=== PATIENT | male | born 1945 | race African-American/Black ===

== ENCOUNTER 2017-05-19 11:32 | Emergency (ER) | payer MEDICARE, OTHER ==
[~2017-05-19] VITALS: Ht 167.6 cm; Wt 90.0 kg
[~2017-05-19 11:32] MED LIST: ASPIRIN 32325 MG/TAB PO; COZAAR 50MG50 MG/TAB PO; HCTZ 25MG TAB25 MG PO; IMDUR 30MG30 MG/TAB PO; LEVAQUIN 750MG750 M1 PO; LIPITOR 40MG TA40 MG PO; NITROSTAT0.4 MG/TAB SL; OMEGA-31 SGL PO; PERI-COLACE 501 TAB PO; PLAVIX 75MG TAB75 MG PO; PLETAL 100MG T100 MG PO; PRILOSEC 20MG20 MG PO; ROXICODONE 55 MG/TAB PO; TENORMIN 2525 MG/TAB PO; ULTRAM 50MG TAB50 MG PO; ZETIA 10MG TAB10 MG PO
[2017-05-19 11:36] VITALS: TEMP 98.6
[2017-05-19 13:05] LABS: BASO % 0.6 % (0.0-2.0); EOS # 0.1 (0.0-0.7); EOS % 3.9 % (0-4.0); GRAN # 1.7 (1.4-6.5); GRAN % 45.6 % (42.2-75.2); HEMATOCRIT 42.6 % (42.0-52.0); HEMOGLOBIN 14.8 g/dl (13.5-18.0); LYMPH # 1.3 (1.2-3.4); LYMPH % 36.4 % (20.0-51.0); MEAN CELL VOLUME 93 fl (80.0-100.0); MEAN CORPUSCULAR HEMOGLOBIN 32 pg (27.0-31.0); MEAN CORPUSCULAR HGB CONC 35 g/dl (33.0-37.0); MEAN PLATELET VOLUME 9.1 fl (7.4-10.4); MONO # 0.5 (0.1-0.6); MONO % 13.5 % (1.7-9.3); PLATELET COUNT 171 K/mm3 (130-400); REDCELL DISTRIBUTION WIDTH-CV 12.7 % (11.5-14.5)
[2017-05-19 13:14] LABS: ALANINE AMINOTRANSFERASE 44 U/L (21-72); ALBUMIN 4.4 gm/dL (3.5-5.0); ALKALINE PHOSPHATASE 65 U/L (50-136); ANION GAP 12 mmol/L (7-16); AST,SGOT 47 U/L (15-37); BLOOD UREA NITROGEN 14 mg/dL (9-20); CALCIUM 9.3 mg/dL (8.4-10.2); CARBON DIOXIDE 25 mmol/L (22-30); CHLORIDE 100 mmol/L (98-107); CREATININE, serum 1.16 mg/dL (0.66-1.25); GLUCOSE 87 mg/dL (74-106); LIPASE 199 U/L (23-300); POTASSIUM 3.9 mmol/L (3.4-5.0); SODIUM 137 mmol/L (137-145); TOTAL PROTEIN 7.5 gm/dL (6.4-8.2)
[2017-05-19 13:17] LABS: C-REACTIVE PROTEIN < 0.5 mg/dL (0.0-0.9)
[2017-05-19 13:23] LABS: TROPONIN-I 0.013 ng/mL (0.000-0.034)
[2017-05-19 14:04] VITALS: BP 125/85; PULSE 64
== END 2017-05-19 14:05 | disposition home or self-care (01) ==
LOC: COL.ER 11:32
PROVIDERS: Emergency Medicine
DX: R07.89 Other chest pain (principal); I10 Essential (primary) hypertension; Z95.5 Presence of coronary angioplasty implant and graft; Z79.82 Long term (current) use of aspirin; Z79.02 Long term (current) use of antithrombotics/antiplatelets

== ENCOUNTER → 2017-11-26 | Outpatient (CLI) | payer MEDICARE, OTHER | LOC: COL.RAD 12:23 | DX: M99.73 Connective tissue and disc stenosis of intervertebral foramina of lumbar region (principal); M51.36 Other intervertebral disc degeneration, lumbar region; M48.061 Spinal stenosis, lumbar region without neurogenic claudication ==

== ENCOUNTER 2018-11-30 19:27 | Emergency (ER) | payer MEDICARE, OTHER ==
[~2018-11-30] VITALS: Ht 167.6 cm; Wt 82.7 kg
[2018-11-30 19:31] VITALS: BP 114/57; TEMP 98.1
[2018-11-30 20:22] VITALS: PULSE 82
== END 2018-11-30 20:23 | disposition home or self-care (01) ==
LOC: COL.ER 19:27
DX: S61.213A Laceration without foreign body of left middle finger without damage to nail, initial encounter (principal); I10 Essential (primary) hypertension; Z23 Encounter for immunization; Z79.82 Long term (current) use of aspirin; Z79.02 Long term (current) use of antithrombotics/antiplatelets; W26.8XXA Contact with other sharp object(s), not elsewhere classified, initial encounter; Y92.009 Unspecified place in unspecified non-institutional (private) residence as the place of occurrence of the external cause

== ENCOUNTER 2019-07-03 15:48 | Emergency (ER) | payer MEDICARE, OTHER ==
[~2019-07-03] VITALS: Ht 160 cm; Wt 79.5 kg
[2019-07-03 15:56] VITALS: TEMP 98.5
[2019-07-03 16:16] LABS: BASO % 0.3 % (0.0-2.0); EOS # 0.1 (0.0-0.7); EOS % 1.6 % (0-4.0); GRAN # 5.1 (1.4-6.5); GRAN % 70.5 % (42.2-75.2); LYMPH # 1.1 (1.2-3.4); LYMPH % 15.3 % (20.0-51.0); MEAN CELL VOLUME 95 fl (80.0-100.0); MEAN CORPUSCULAR HEMOGLOBIN 31 pg (27.0-31.0); MEAN CORPUSCULAR HGB CONC 33 g/dl (33.0-37.0); MEAN PLATELET VOLUME 9.3 fl (7.4-10.4); MONO # 0.9 (0.1-0.6); MONO % 11.9 % (1.7-9.3); PLATELET COUNT 324 K/mm3 (130-400); RED BLOOD COUNT 3.23 M/mm3 (4.20-5.60); REDCELL DISTRIBUTION WIDTH-CV 13.7 % (11.5-14.5)
[2019-07-03 16:20] LABS: HEMATOCRIT 30.6 % (42.0-52.0)
[2019-07-03 16:28] LABS: ALANINE AMINOTRANSFERASE 22 U/L (4-49); ALBUMIN 4.2 gm/dL (3.5-5.0); ALKALINE PHOSPHATASE 68 U/L (50-136); ANION GAP 6 mmol/L (7-16); AST,SGOT 37 U/L (15-37); BILIRUBIN,TOTAL 1.4 mg/dL (0.0-1.0); BLOOD UREA NITROGEN 42 mg/dL (9-20); C-REACTIVE PROTEIN 2.1 mg/dL (0.0-0.9); CALCIUM 8.9 mg/dL (8.4-10.2); CARBON DIOXIDE 25 mmol/L (22-30); CHLORIDE 106 mmol/L (98-107); CREATININE, serum 2.34 (0.66-1.25); GLUCOSE 89 mg/dL (74-106); POTASSIUM 4.6 mmol/L (3.4-5.0); SODIUM 137 mmol/L (137-145); TOTAL PROTEIN 7.9 gm/dL (6.4-8.2)
[2019-07-03 16:37] LABS: TROPONIN-I < 0.012 ng/mL (0.000-0.035)
[2019-07-03 18:16] VITALS: BP 133/71; PULSE 70
== END 2019-07-03 18:18 | disposition home or self-care (01) ==
LOC: COL.ER 15:48
PROVIDERS: Emergency Medicine
DX: R07.89 Other chest pain (principal); R06.00 Dyspnea, unspecified; E78.5 Hyperlipidemia, unspecified; I10 Essential (primary) hypertension; Z79.82 Long term (current) use of aspirin; Z79.02 Long term (current) use of antithrombotics/antiplatelets; Z95.828 Presence of other vascular implants and grafts

== ENCOUNTER → 2019-07-16 | Outpatient (CLI) | payer MEDICARE, OTHER | LOC: COL.RAD 08:14 | DX: I71.4 Abdominal aortic aneurysm, without rupture (principal); K66.1 Hemoperitoneum; I77.72 Dissection of iliac artery; I70.8 Atherosclerosis of other arteries; Z98.890 Other specified postprocedural states | CPT/HCPCS: Q9967 ==

== ENCOUNTER → 2019-10-29 | Outpatient (CLI) | payer MEDICARE, OTHER ==
[2019-10-29 13:56] LABS: BASO % 0.3 % (0.0-2.0); EOS # 0.1 (0.0-0.7); EOS % 2.7 % (0-4.0); GRAN # 1.9 (1.4-6.5); GRAN % 51.3 % (42.2-75.2); LYMPH # 1.1 (1.2-3.4); LYMPH % 30.8 % (20.0-51.0); MEAN CELL VOLUME 94 fl (80.0-100.0); MEAN CORPUSCULAR HEMOGLOBIN 31 pg (27.0-31.0); MEAN CORPUSCULAR HGB CONC 33 g/dl (33.0-37.0); MEAN PLATELET VOLUME 9.4 fl (7.4-10.4); MONO # 0.5 (0.1-0.6); MONO % 14.6 % (1.7-9.3); PLATELET COUNT 122 K/mm3 (130-400); RED BLOOD COUNT 3.87 M/mm3 (4.20-5.60); REDCELL DISTRIBUTION WIDTH-CV 13.2 % (11.5-14.5)
[2019-10-29 13:57] LABS: HEMATOCRIT 36.3 % (42.0-52.0)
[2019-10-29 14:02] LABS: CALCIUM 8.8 mg/dL (8.4-10.2); CREATININE, serum 1.62 (0.66-1.25); POTASSIUM 4.3 mmol/L (3.4-5.0)
== END ==
LOC: COL.RAD 13:30
PROVIDERS: Internal Medicine Cardiovascular Disease
DX: I71.4 Abdominal aortic aneurysm, without rupture (principal); Z95.828 Presence of other vascular implants and grafts
CPT/HCPCS: Q9967

== ENCOUNTER 2019-12-14 16:13 | Inpatient (IN) | payer MEDICARE, OTHER ==
[~2019-12-14] VITALS: Ht 165.1 cm; Wt 76.7 kg
[2019-12-14 17:36] LABS: COLLECTION METHOD CLEAN CATCH
[2019-12-14 17:40] LABS: BASO % 0.2 % (0.0-2.0); GRAN # 7.2 (1.4-6.5); GRAN % 77.2 % (42.2-75.2); HEMOGLOBIN 12.8 g/dl (13.5-18.0); LYMPH # 0.7 (1.2-3.4); LYMPH % 7.6 % (20.0-51.0); MEAN CELL VOLUME 94 fl (80.0-100.0); MEAN CORPUSCULAR HEMOGLOBIN 32 pg (27.0-31.0); MEAN CORPUSCULAR HGB CONC 34 g/dl (33.0-37.0); MONO # 1.4 (0.1-0.6); MONO % 14.5 % (1.7-9.3); PLATELET COUNT 129 K/mm3 (130-400); RED BLOOD COUNT 4.04 M/mm3 (4.20-5.60); REDCELL DISTRIBUTION WIDTH-CV 13.5 % (11.5-14.5)
[2019-12-14 17:46] LABS: BUDDING YEAST Present /hpf; MUCOUS Present /lpf; PH 6 (5-8); SQUAMOUS EPITHELIAL 0-2 /hpf; URINE APPEARANCE Cloudy; URINE BACTERIA Many /hpf; URINE BILIRUBIN Negative (NEGATIVE); URINE BLOOD 2+ (NEGATIVE); URINE COLOR Yellow; URINE GLUCOSE Negative (NEGATIVE); URINE KETONE Negative (NEGATIVE); URINE LEUKOCYTE ESTERASE 3+ (NEGATIVE); URINE NITRATE Negative (NEGATIVE); URINE PROTEIN(semi-quant) 2+ (NEGATIVE)
[2019-12-14 17:52] LABS: ALBUMIN 4.2 gm/dL (3.5-5.0); BILIRUBIN,TOTAL 1.2 mg/dL (0.0-1.0); CALCIUM 8.8 mg/dL (8.4-10.2); CREATININE, serum 2.61 (0.66-1.25); POTASSIUM 4.2 mmol/L (3.4-5.0); TOTAL PROTEIN 7.7 gm/dL (6.4-8.2)
[2019-12-14 18:00] LABS: TROPONIN-I 0.029 ng/mL (0.000-0.035)
[2019-12-14 18:03] LABS: C-REACTIVE PROTEIN 16.7 mg/dL (0.0-0.9)
[2019-12-14] MEDS ORDERED: FLONASE NASAL S16 GM NS (20:08)
[2019-12-14] MEDS ORDERED: DITROPAN XL10 MG PO ×3 (20:09→21:53)
[2019-12-14] MEDS ORDERED: FLONASEALLERGY NS (21:49)
[2019-12-14] MEDS ORDERED: OMEGA-3 1000 MG1 CAP PO (21:49)
[2019-12-14] MEDS ORDERED: PROTONIX 40MG T40 MG PO (21:49)
[2019-12-14] MEDS ORDERED: MOBIC15 MG PO (21:50)
[2019-12-14] MEDS ORDERED: NITROSTAT0.4 MG/TAB SL (21:51)
[2019-12-14] MEDS ORDERED: ULTRAM 50MG TAB50 MG PO (21:53)
[2019-12-14] MEDS ORDERED: ZETIA 10MG TAB10 MG PO (21:55)
[2019-12-14] MEDS ORDERED: ASPIRIN 81M81 MG/TA2 PO (21:56)
[2019-12-14] MEDS ORDERED: COLACE 100100 MG/CAP PO (21:57)
[2019-12-14 22:28] LABS: INR 1.2 (0.8-3.0); PROTHROMBIN TIME 13.6 SECONDS (9.7-12.8)
--- NOTE | 2019-12-14 22:30 | NUR ---
arrived on unit per WC and assisted out of WC and into bed, c/o being cold and blankets provided, GROUP RESERVATIONS COORDINATOR in to complete initial assessment
[2019-12-14 22:33] VITALS: BP 143/73; PULSE 84; TEMP 101.2
--- NOTE | 2019-12-14 23:00 | NUR ---
admission assessment completed, see interventions for further info, instructed to call when he needs to void and verbalizes understanding,
--- NOTE | 2019-12-15 00:59 | NUR ---
appears to be sleeping, in bed with lights off, eyes closed, resp quiet and easy
--- NOTE | 2019-12-15 02:36 | NUR ---
continues to appear to sleep, eyes closed, resp quiet and easy
--- NOTE | 2019-12-15 02:43 | NUR ---
assisted up to bathroom, urine is clear yellow but has a foul odor, T is now 98.2
[2019-12-15 03:23] VITALS: BP 127/65; PULSE 73; TEMP 98.6
--- NOTE | 2019-12-15 06:01 | NUR ---
has voided twice since 229, states he is feeling better aleady, denies any needs
[2019-12-15 06:45] LABS: BASO % 0.1 % (0.0-2.0); EOS % 0.1 % (0-4.0); GRAN # 6.5 (1.4-6.5); GRAN % 77.7 % (42.2-75.2); HEMATOCRIT 37.4 % (42.0-52.0); HEMOGLOBIN 12.5 g/dl (13.5-18.0); LYMPH # 0.6 (1.2-3.4); MEAN CELL VOLUME 94 fl (80.0-100.0); MEAN CORPUSCULAR HEMOGLOBIN 31 pg (27.0-31.0); MEAN CORPUSCULAR HGB CONC 33 g/dl (33.0-37.0); MEAN PLATELET VOLUME 9.6 fl (7.4-10.4); MONO # 1.2 (0.1-0.6); MONO % 14.6 % (1.7-9.3); PLATELET COUNT 131 K/mm3 (130-400); RED BLOOD COUNT 3.98 M/mm3 (4.20-5.60); REDCELL DISTRIBUTION WIDTH-CV 13.3 % (11.5-14.5)
[2019-12-15 06:53] LABS: ALBUMIN 3.5 gm/dL (3.5-5.0); BILIRUBIN,TOTAL 0.9 mg/dL (0.0-1.0); CALCIUM 8.3 mg/dL (8.4-10.2); CREATININE, serum 2.4 (0.66-1.25); POTASSIUM 3.9 mmol/L (3.4-5.0); TOTAL PROTEIN 6.7 gm/dL (6.4-8.2)
--- NOTE | 2019-12-15 07:02 | NUR ---
bedside shift report given to PETR Calles
[2019-12-15 07:46] VITALS: BP 130/87; PULSE 80; TEMP 99.4
--- NOTE | 2019-12-15 10:42 | NUR ---
First visit from the side show entertainer. No needs right now.
[2019-12-15 11:34] VITALS: BP 113/57; PULSE 71; TEMP 99.5
--- NOTE | 2019-12-15 11:49 | NUR ---
Dr Marley notified of consult.
--- NOTE | 2019-12-15 12:41 | NUR ---
Servicer met with patient and his , Meghan (ph#[phone]) to discuss discharge planning. Patient lives in [place] with his and sees Dr. Argueta for primary care. Patient obtains medications from [facility] with no difficulties and does not use any DME. Patient reports independence with ADLS and plans to return home at discharge. Patient does not have Advance Directives and was not interested in setting them up at this time. SW will continue to follow as needed.
[2019-12-15 16:14] VITALS: BP 143/67; PULSE 80; TEMP 100.1
--- NOTE | 2019-12-15 19:43 | NUR ---
Resting in recliner. Assessment complete. Lungs clear. Heart sounds normal. Bowels active x4. Pulses present throughout. No edema at this time. IV right AC infusing without complications. Denies pain. Denies needs. Call light in reach.
[2019-12-15 20:25] VITALS: BP 94/50; PULSE 73; TEMP 99.6
--- NOTE | 2019-12-15 22:08 | NUR ---
Resting in bed asleep. Call light in reach.
--- NOTE | 2019-12-16 | NUR ---
Resting in bed. Denies needs. Denies pain. Call light in reach.
[2019-12-16 00:30] VITALS: BP 139/68; PULSE 80; TEMP 99.7
--- NOTE | 2019-12-16 02:06 | NUR ---
Resting in bed. Denies needs. call light in reach.
--- NOTE | 2019-12-16 04:29 | NUR ---
Resting in bed. Denies needs. Call light in reach.
[2019-12-16 06:14] VITALS: BP 115/53; PULSE 73; TEMP 98.6
--- NOTE | 2019-12-16 06:22 | NUR ---
Patient had uneventful night. Resting in bed this AM. Call light in reach.
--- NOTE | 2019-12-16 07:04 | NUR ---
Report given to PETR Calles
[2019-12-16 07:13] LABS: BASO % 0.3 % (0.0-2.0); EOS % 0.2 % (0-4.0); GRAN # 4.5 (1.4-6.5); GRAN % 71.1 % (42.2-75.2); HEMOGLOBIN 10.9 g/dl (13.5-18.0); LYMPH # 0.5 (1.2-3.4); LYMPH % 8.4 % (20.0-51.0); MEAN CELL VOLUME 93 fl (80.0-100.0); MEAN CORPUSCULAR HEMOGLOBIN 32 pg (27.0-31.0); MEAN CORPUSCULAR HGB CONC 34 g/dl (33.0-37.0); MEAN PLATELET VOLUME 9.3 fl (7.4-10.4); MONO # 1.2 (0.1-0.6); MONO % 19.4 % (1.7-9.3); PLATELET COUNT 131 K/mm3 (130-400); RED BLOOD COUNT 3.42 M/mm3 (4.20-5.60); REDCELL DISTRIBUTION WIDTH-CV 13.4 % (11.5-14.5)
[2019-12-16 07:14] LABS: HEMATOCRIT 31.9 % (42.0-52.0)
[2019-12-16 07:24] LABS: ALBUMIN 2.9 gm/dL (3.5-5.0); BILIRUBIN,TOTAL 0.6 mg/dL (0.0-1.0); CALCIUM 7.8 mg/dL (8.4-10.2); CREATININE, serum 1.81 (0.66-1.25); POTASSIUM 3.5 mmol/L (3.4-5.0); TOTAL PROTEIN 5.9 gm/dL (6.4-8.2)
[2019-12-16 07:35] VITALS: BP 91/71; PULSE 83; TEMP 97.8
[2019-12-16 11:05] VITALS: BP 111/62; PULSE 64; TEMP 98.7
--- NOTE | 2019-12-16 12:13 | NUR ---
Patient sitting up at bedside for lunch. rounded and reviewed plan of care. Patient has no complaints of pain.
[2019-12-16 16:40] VITALS: BP 127/67; PULSE 73; TEMP 99.1
--- NOTE | 2019-12-16 19:05 | NUR ---
Received report from Marli. Seen patient awake, sitting in the recliner watching TV. With IV on left AC infusing NS at 75ml/hr. He is alert, oriented and independent. He denies pain. Call light within reach.
[2019-12-16 20:20] VITALS: BP 122/61; PULSE 74; TEMP 99
[2019-12-17 00:14] VITALS: BP 124/64; PULSE 69; TEMP 98.4
[2019-12-17 05:04] VITALS: BP 109/53; PULSE 75; TEMP 98.4
--- NOTE | 2019-12-17 06:30 | NUR ---
Patient had uneventful night. He is already awake, watching tv. He denies pain. Call light and urinal within reach.
--- NOTE | 2019-12-17 07:05 | NUR ---
Sitting on edge of bed eating breakfast. Denies pain. Patient says that he is voiding without difficulty. Is feeling better and hopes to go home today, would like to try to get out of here before 1200. Explain that we will see with the providers if we will be able to do that. Patient denies additional needs at this time.
[2019-12-17 07:35] VITALS: BP 103/58; PULSE 63; TEMP 97.7
[2019-12-17 07:39] LABS: BASO % 0.4 % (0.0-2.0); EOS % 0.6 % (0-4.0); GRAN # 3.6 (1.4-6.5); HEMOGLOBIN 10.5 g/dl (13.5-18.0); LYMPH # 0.8 (1.2-3.4); LYMPH % 14.3 % (20.0-51.0); MEAN CELL VOLUME 93 fl (80.0-100.0); MEAN CORPUSCULAR HEMOGLOBIN 31 pg (27.0-31.0); MEAN CORPUSCULAR HGB CONC 34 g/dl (33.0-37.0); MEAN PLATELET VOLUME 9.6 fl (7.4-10.4); MONO # 0.9 (0.1-0.6); MONO % 16.3 % (1.7-9.3); PLATELET COUNT 162 K/mm3 (130-400); RED BLOOD COUNT 3.37 M/mm3 (4.20-5.60); REDCELL DISTRIBUTION WIDTH-CV 13.4 % (11.5-14.5)
[2019-12-17 07:46] LABS: ALBUMIN 2.7 gm/dL (3.5-5.0); BILIRUBIN,TOTAL 0.4 mg/dL (0.0-1.0); CALCIUM 7.9 mg/dL (8.4-10.2); CREATININE, serum 1.58 (0.66-1.25); POTASSIUM 3.5 mmol/L (3.4-5.0); TOTAL PROTEIN 5.6 gm/dL (6.4-8.2)
[2019-12-17 07:53] LABS: HEMATOCRIT 31.2 % (42.0-52.0)
--- NOTE | 2019-12-17 11:01 | NUR ---
Spoke with Dr. Marley regarding if patient is clear for discharge from his standpoint as patient is wanting to discharge today. Dr. Marley says that if the hospitalist is okay with discharging the patient he is okay with it and his office will call to set up a telemed appointment to discuss possible TURP procedure.
[2019-12-17] MEDS ORDERED: OMNICEF 300MG300 MG PO (11:19)
--- NOTE | 2019-12-17 11:30 | NUR ---
Luncheonette Manager attended clinical rounds with the team and patient to discharge home today. SW read IM form aloud to patient who verbalized understanding and gave SW permission to sign on his behalf. SW placed form in chart and provided copy to patient, who denied any further questions or concerns at this time.
[2019-12-17 11:43] VITALS: BP 106/64; PULSE 57; TEMP 97.9
--- NOTE | 2019-12-17 12:50 | NUR ---
Review discharge instructions with the patient. Questions answered. Patient verbalizes understanding and signs discharge paperwork. Discharge packet provided to the patient. Patient will notify staff when is here to pick him up.
--- NOTE | 2019-12-17 13:04 | NUR ---
Patient here to get patient. Patient has all personal belongings. Escorted out to [facility] by DARLIN Evans.
== END 2019-12-17 13:05 | disposition home or self-care (01) | DRG 872 ==
LOC: COL.ER 16:13 → SURG 19:52
PROVIDERS: Emergency Medicine; Nurse Practitioner Family; ADMIT Student in an Organized Health Care Education/Training Program
DX: A41.51 Sepsis due to Escherichia coli [E. coli] (principal); N17.9 Acute kidney failure, unspecified; E87.1 Hypo-osmolality and hyponatremia; G89.29 Other chronic pain; M54.9 Dorsalgia, unspecified; N18.9 Chronic kidney disease, unspecified; D69.6 Thrombocytopenia, unspecified; K21.9 Gastro-esophageal reflux disease without esophagitis; D50.0 Iron deficiency anemia secondary to blood loss (chronic); I25.10 Atherosclerotic heart disease of native coronary artery without angina pectoris; I12.9 Hypertensive chronic kidney disease with stage 1 through stage 4 chronic kidney disease, or unspecified chronic kidney disease; Z20.828 Contact with and (suspected) exposure to other viral communicable diseases; N40.0 Benign prostatic hyperplasia without lower urinary tract symptoms; I71.4 Abdominal aortic aneurysm, without rupture; Z87.891 Personal history of nicotine dependence; Z85.828 Personal history of other malignant neoplasm of skin
CPT/HCPCS: 99223-AI; 99232-AI; 99239; J0696; J1644; J7030

== ENCOUNTER 2020-04-04 02:13 | Observation (INO) | payer MEDICARE, OTHER ==
[~2020-04-04] VITALS: Ht 160 cm; Wt 77.6 kg
[~2020-04-04 02:13] MED LIST changes: +ASPIRIN 81M81 MG/TA2 PO; +COLACE 100100 MG/CAP PO; +DITROPAN XL10 MG PO; +FLONASE NASAL S16 GM NS; +FLONASEALLERGY NS; +MOBIC15 MG PO; +OMEGA-3 1000 MG1 CAP PO; +OMNICEF 300MG300 MG PO; +PROTONIX 40MG T40 MG PO
[2020-04-04 02:56] LABS: BASO % 0.2 % (0.0-2.0); EOS # 0.2 (0.0-0.7); EOS % 3.6 % (0-4.0); GRAN # 2.8 (1.4-6.5); GRAN % 59.6 % (42.2-75.2); LYMPH # 1.1 (1.2-3.4); LYMPH % 22.8 % (20.0-51.0); MEAN CELL VOLUME 93 fl (80.0-100.0); MEAN CORPUSCULAR HGB CONC 34 g/dl (33.0-37.0); MEAN PLATELET VOLUME 9.4 fl (7.4-10.4); MONO # 0.6 (0.1-0.6); MONO % 13.6 % (1.7-9.3); PLATELET COUNT 137 K/mm3 (130-400); RED BLOOD COUNT 2.99 M/mm3 (4.20-5.60); REDCELL DISTRIBUTION WIDTH-CV 13.1 % (11.5-14.5)
[2020-04-04 02:58] LABS: HEMATOCRIT 27.7 % (42.0-52.0); HEMOGLOBIN 9.5 g/dl (13.5-18.0); MEAN CORPUSCULAR HEMOGLOBIN 32 pg (27.0-31.0)
[2020-04-04 03:10] LABS: CALCIUM 8.9 mg/dL (8.4-10.2); CREATININE, serum 1.51 (0.66-1.25); POTASSIUM 3.9 mmol/L (3.4-5.0)
[2020-04-04 04:00] LABS: LIPASE 237 U/L (23-300)
[2020-04-04 04:14] LABS: TROPONIN-I < 0.012 ng/mL (0.000-0.035)
[2020-04-04 05:33] LABS: COLLECTION METHOD CLEAN CATCH
[2020-04-04 05:50] LABS: PH 8 (5-8); SQUAMOUS EPITHELIAL None Seen /hpf; URINE BACTERIA None Seen /hpf; URINE BILIRUBIN Negative (NEGATIVE); URINE BLOOD 3+ (NEGATIVE); URINE COLOR Red; URINE GLUCOSE Negative (NEGATIVE); URINE KETONE Negative (NEGATIVE); URINE LEUKOCYTE ESTERASE Negative (NEGATIVE); URINE NITRATE Negative (NEGATIVE); URINE PROTEIN(semi-quant) 3+ (NEGATIVE); URINE RBC >50 /hpf; URINE UROBILINOGEN Negative (NEGATIVE)
[2020-04-04 08:16] VITALS: BP 155/84; PULSE 70; TEMP 98.5
[2020-04-04] MEDS ORDERED: HCTZ 25MG TAB25 MG PO (08:32)
[2020-04-04] MEDS ORDERED: MOBIC15 MG PO (08:32)
[2020-04-04] MEDS ORDERED: PROVENTIL0.09 MG/A1 IH (08:33)
[2020-04-04] MEDS ORDERED: TENORMIN 2525 MG/TAB PO (08:34)
[2020-04-04] MEDS ORDERED: COZAAR 50MG50 MG/TAB PO (09:29)
[2020-04-04 09:44] LABS: URINE APPEARANCE Cloudy
--- NOTE | 2020-04-04 10:18 | NUR ---
Patient amditted to 328. Spoke to & order obtained. Also spoke to and update given. made aware of consult for hyponatremia. Ivf started. Collier to DD with malloy red output. minimal clots noted. All admission paperwork completed.
[2020-04-04 11:12] VITALS: BP 121/62; PULSE 56; TEMP 98.2
--- NOTE | 2020-04-04 11:33 | NUR ---
Plan is to return home with Lora . SW met with patient about care. Patient reports that he resides locally. Patient reports that he has a DTR Dina Harden that is apart of his care. Patient rports that his PCP is Dr. Argueta. Patient reports that he obtains medications at [facility]. Patient shares that he does not use any DME supports. Patient reports that he fairly independent and also drives himself, but will transport. Patient shares that he did not have the best care in ED and overnight staff. Offered to report and have house talk with him about concerns, Patient declined. Will continue to follow for any additional care needs.
--- NOTE | 2020-04-04 12:08 | NUR ---
First visit from the jig box operator. No needs right now.
[2020-04-04 16:33] VITALS: BP 151/66; PULSE 65; TEMP 98.1
--- NOTE | 2020-04-04 19:50 | NUR ---
Patient sitting up in chair. Collier continues to drain urine, malloy red, minimal clots noted. He denies pain. Traction with foam tape per . Hospitalist rounded orders obtained. Blood sugar stable, tele on. He has tolerated meals, No free water. spoke to his daughter on the phone & update given. Scds. Report to [facility]
[2020-04-04 21:08] VITALS: BP 114/49; PULSE 72; TEMP 98.6
[2020-04-04 23:44] VITALS: BP 125/51; PULSE 73; TEMP 98.9
[2020-04-05] VITALS (9 sets, daily range): BP systolic 112–145; BP diastolic 49–82; PULSE 60–78; TEMP 97.9–98.7
--- NOTE | 2020-04-05 03:20 | NUR ---
PT HAS BLADDER SPASM WITH BLOOD, HAND IRRIGATED WITH NO RETURN OF ANY CLOTS. HAS HAD 1400CC OUTPUT THIS SHIFT. MIGUEL DRAINING WELL, TENSION APPLIED. IVF INFUSING TO RIGHT FOREARM WITHOUT REDNESS OR SWELLING.
[2020-04-05 07:43] LABS: EOS # 0.1 (0.0-0.7); EOS % 2.9 % (0-4.0); GRAN # 2.3 (1.4-6.5); GRAN % 61.1 % (42.2-75.2); LYMPH # 0.8 (1.2-3.4); LYMPH % 21.3 % (20.0-51.0); MEAN CELL VOLUME 95 fl (80.0-100.0); MEAN CORPUSCULAR HGB CONC 33 g/dl (33.0-37.0); MEAN PLATELET VOLUME 9.4 fl (7.4-10.4); MONO # 0.5 (0.1-0.6); MONO % 14.4 % (1.7-9.3); PLATELET COUNT 136 K/mm3 (130-400); RED BLOOD COUNT 2.77 M/mm3 (4.20-5.60); REDCELL DISTRIBUTION WIDTH-CV 12.9 % (11.5-14.5)
[2020-04-05 07:48] LABS: HEMATOCRIT 26.4 % (42.0-52.0); HEMOGLOBIN 8.7 g/dl (13.5-18.0); MEAN CORPUSCULAR HEMOGLOBIN 31 pg (27.0-31.0)
[2020-04-05 08:01] LABS: CALCIUM 8.9 mg/dL (8.4-10.2); CREATININE, serum 1.37 (0.66-1.25)
--- NOTE | 2020-04-05 09:38 | NUR ---
PT RESTING IN BED. PT TO GO TO SURGERY @1600 FOR CYSTO AND FULGARATION. PAIN CONTROLLED WITH PO MEDS AT THIS TIME. PT IS A/O X3. ASSESSEMENTS COMPLETE. VSS. MIGUEL CATHETER TO DD WITH DUNCAN RED URINE IN BAG.
--- NOTE | 2020-04-05 16:11 | NUR ---
pt to surgery per bed at this time.
--- NOTE | 2020-04-05 16:12 | NUR ---
EMPTIED 1150 OF DUNCAN RED URINE FROM BAG.
--- NOTE | 2020-04-05 18:22 | NUR ---
PT TO ROOM 328 PER BED WITH REPORT FROM JOSH GRADING MACHINE FEEDER.[id number].
--- NOTE | 2020-04-05 18:48 | NUR ---
REPORT TO IVÁN HUMPHREYS.
--- NOTE | 2020-04-05 19:20 | NUR ---
Resting in bed. Assessment complete. Lungs clear. Heart sounds normal. Bowels active x4. Pulses present throughout. BLE edema +1. IV right wrist without complications. Patient has CBI running. Patient urine clear. CBI flow decreased. Reported some back spasms. Repositioned and pain relieved at this time. Denies ther needs. Will continue to closely monitor.
--- NOTE | 2020-04-05 20:45 | NUR ---
Per Dr. Donell mayen to release tension placed on lucero. Asked and provided Dr. Marley update on patient. No other orders at this time. Tension released. Patient assisted to chair. Will monitor.
--- NOTE | 2020-04-05 23:37 | NUR ---
Sitting in chair. Denies needs. CBI lucero bag emptied. Pinkish. Will continue to monitor.
--- NOTE | 2020-04-06 02:10 | NUR ---
Resting in bed. Denies needs. Call light in reach.
[2020-04-06 02:19] VITALS: BP 157/77; PULSE 64; TEMP 97.9
[2020-04-06 04:00] VITALS: BP 120/73; PULSE 84; TEMP 98.6
--- NOTE | 2020-04-06 06:04 | NUR ---
Patient continued on CBI throughout night without complications. Able to decrease CBI flow rate again this AM. Otherwise uneventful night. Up in recliner this AM. Call light in reach
--- NOTE | 2020-04-06 06:32 | NUR ---
Report given to PETR Garcia
[2020-04-06 07:45] LABS: HEMATOCRIT 27.7 % (42.0-52.0); HEMOGLOBIN 9.3 g/dl (13.5-18.0); MEAN CELL VOLUME 95 fl (80.0-100.0); MEAN CORPUSCULAR HEMOGLOBIN 32 pg (27.0-31.0); MEAN CORPUSCULAR HGB CONC 34 g/dl (33.0-37.0); MEAN PLATELET VOLUME 9.9 fl (7.4-10.4); PLATELET COUNT 154 K/mm3 (130-400); RED BLOOD COUNT 2.93 M/mm3 (4.20-5.60); REDCELL DISTRIBUTION WIDTH-CV 13.2 % (11.5-14.5)
[2020-04-06 07:49] VITALS: BP 114/46; PULSE 60; TEMP 98
[2020-04-06 08:26] LABS: CALCIUM 9.2 mg/dL (8.4-10.2); CREATININE, serum 1.36 (0.66-1.25); POTASSIUM 4.2 mmol/L (3.4-5.0)
--- NOTE | 2020-04-06 09:44 | NUR ---
PT UP INDEPENDENTLY IN ROOM. PT TO DISCHARGE THIS AM. ORDERS IN. DR. HARESH MERRILL DISCAHRGE ORDERS.
[2020-04-06 11:18] VITALS: BP 129/90; PULSE 76; TEMP 97.7
--- NOTE | 2020-04-06 11:57 | NUR ---
DISCHARGE INSTRUCTIONS REVIEWED WITH PT. QUESTIONS SOLICITED AND ANSWERED. EXTENSIVE LEG BAG TEACHING DONE. SENT HOME WITH MIGUEL BAG AND LEG BAG.
== END 2020-04-06 11:30 | disposition home or self-care (01) ==
LOC: COL.ER 02:13 → JCC 05:17
PROVIDERS: Emergency Medicine; Physician Assistant; Urology; ADMIT Urology
DX: R31.0 Gross hematuria (principal); R33.9 Retention of urine, unspecified; E87.1 Hypo-osmolality and hyponatremia; I25.118 Atherosclerotic heart disease of native coronary artery with other forms of angina pectoris; I25.2 Old myocardial infarction; E11.22 Type 2 diabetes mellitus with diabetic chronic kidney disease; N18.30 Chronic kidney disease, stage 3 unspecified; I12.9 Hypertensive chronic kidney disease with stage 1 through stage 4 chronic kidney disease, or unspecified chronic kidney disease; Z20.822 Contact with and (suspected) exposure to COVID-19; R07.89 Other chest pain; J44.9 Chronic obstructive pulmonary disease, unspecified; K21.9 Gastro-esophageal reflux disease without esophagitis; E11.9 Type 2 diabetes mellitus without complications; E78.5 Hyperlipidemia, unspecified; D64.9 Anemia, unspecified; Z87.891 Personal history of nicotine dependence; Z79.82 Long term (current) use of aspirin; Z95.818 Presence of other cardiac implants and grafts; Z79.899 Other long term (current) drug therapy; Z79.2 Long term (current) use of antibiotics; Z86.79 Personal history of other diseases of the circulatory system; Z85.828 Personal history of other malignant neoplasm of skin; Z79.02 Long term (current) use of antithrombotics/antiplatelets
CPT/HCPCS: 99222; G0378; J0690; J1956; J2405; J2704; J7030

== ENCOUNTER → 2020-05-02 | Outpatient (CLI) | payer MEDICARE, OTHER ==
[~2020-05-02] MED LIST changes: +PROVENTIL0.09 MG/A1 IH
[2020-05-02 09:55] LABS: CALCIUM 9.4 mg/dL (8.4-10.2); CREATININE, serum 1.5 (0.66-1.25); POTASSIUM 4.3 mmol/L (3.4-5.0)
== END ==
LOC: COL.LAB 09:05 → COL.RAD 09:05
PROVIDERS: Internal Medicine Cardiovascular Disease
DX: I71.4 Abdominal aortic aneurysm, without rupture (principal); N26.1 Atrophy of kidney (terminal)
CPT/HCPCS: Q9967

== ENCOUNTER 2020-10-16 12:39 | Emergency (ER) | payer MEDICARE, OTHER ==
[~2020-10-16] VITALS: Ht 165.1 cm; Wt 72.7 kg
[2020-10-16 15:00] VITALS: BP 138/71; PULSE 55; TEMP 97.8
== END 2020-10-16 15:10 | disposition home or self-care (01) ==
LOC: COL.ER 12:39
DX: S61.215A Laceration without foreign body of left ring finger without damage to nail, initial encounter (principal); I25.10 Atherosclerotic heart disease of native coronary artery without angina pectoris; I10 Essential (primary) hypertension; J44.9 Chronic obstructive pulmonary disease, unspecified; Z79.02 Long term (current) use of antithrombotics/antiplatelets; Z79.899 Other long term (current) drug therapy; W26.9XXA Contact with unspecified sharp object(s), initial encounter

== ENCOUNTER → 2020-10-26 | Outpatient (CLI) | payer MEDICARE, OTHER ==
[2020-10-26 09:16] VITALS: BP 177/92; PULSE 64
== END ==
LOC: COL.ER 09:12
DX: Z48.02 Encounter for removal of sutures (principal)

== ENCOUNTER → 2021-04-24 | Outpatient (CLI) | payer MEDICARE, OTHER | LOC: COL.RAD 10:36 | DX: I71.4 Abdominal aortic aneurysm, without rupture (principal); Z95.828 Presence of other vascular implants and grafts ==

== ENCOUNTER 2021-06-15 08:55 | Emergency (ER) | payer MEDICARE, OTHER ==
[~2021-06-15] VITALS: Ht 160 cm; Wt 72.7 kg
[2021-06-15 09:04] VITALS: TEMP 97.4
[2021-06-15 09:18] VITALS: BP 144/91
[2021-06-15] MEDS ORDERED: ANUSOL HC CREAM30 GM TP (09:33)
[2021-06-15 09:42] VITALS: PULSE 67
== END 2021-06-15 09:42 | disposition home or self-care (01) ==
LOC: COL.ER 08:55
DX: K64.4 Residual hemorrhoidal skin tags (principal); I25.10 Atherosclerotic heart disease of native coronary artery without angina pectoris; Z79.02 Long term (current) use of antithrombotics/antiplatelets

== ENCOUNTER → 2021-09-15 | Outpatient (CLI) | payer MEDICARE, OTHER ==
[~2021-09-15] MED LIST changes: +ANUSOL HC CREAM30 GM TP
== END ==
LOC: COL.RAD 11:00
DX: T82.310A Breakdown (mechanical) of aortic (bifurcation) graft (replacement), initial encounter (principal); I71.4 Abdominal aortic aneurysm, without rupture; Z98.890 Other specified postprocedural states

== ENCOUNTER 2023-02-06 08:15 | Outpatient (RCR) | payer MEDICARE, OTHER ==
[~2023-02-06 08:15] MED LIST changes: +CEPHALEXIN500 M1 PO
== END 2023-02-07 | disposition home or self-care (01) ==
LOC: WSC
DX: G62.9 Polyneuropathy, unspecified (principal)

== ENCOUNTER 2023-03-08 08:15 | Outpatient (RCR) | payer MEDICARE, OTHER | END 2023-03-10 | disposition home or self-care (01) | LOC: WSPT | DX: G62.9 Polyneuropathy, unspecified (principal) ==

== ENCOUNTER → 2023-04-10 | Outpatient (RCR) | payer MEDICARE, OTHER | END | disposition home or self-care (01) | LOC: WSPT → WSC 03-15 08:15 → WSPT 03-20 08:15 → WSC 03-22 08:15 → WSPT 03-27 08:15 | DX: G62.9 Polyneuropathy, unspecified (principal); R53.1 Weakness ==

== ENCOUNTER 2023-05-08 08:15 | Outpatient (RCR) | payer MEDICARE, OTHER | END 2023-05-09 | disposition home or self-care (01) | LOC: WSPT | DX: G62.9 Polyneuropathy, unspecified (principal); R53.1 Weakness; M48.02 Spinal stenosis, cervical region ==

== ENCOUNTER 2023-05-28 08:15 | Outpatient (RCR) | payer MEDICARE, OTHER | END 2023-06-09 | disposition home or self-care (01) | LOC: WSPT | DX: M48.02 Spinal stenosis, cervical region (principal); R53.1 Weakness; G62.9 Polyneuropathy, unspecified ==

== ENCOUNTER 2023-06-14 12:23 | Day surgery (SDC) | payer MEDICARE, OTHER ==
[~2023-06-14] VITALS: Ht 160 cm; Wt 64.1 kg
[~2023-06-14 12:23] MED LIST changes: +LR 1,000 ML IV SCH; +Ondansetron 4 MG/2 ML VIAL IV PRN
[2023-06-14] MEDS ORDERED: Lidocaine PF 2% (20 MG/ML) 5 ML VIAL ONE (13:14)
[2023-06-14 13:27] VITALS: BP 110/67; PULSE 61; TEMP 97.8
[2023-06-14] MEDS ORDERED: FLOMAX 0.40.4 MG/CAP PO (13:40)
[2023-06-14] MEDS ORDERED: SENNA-S 50 MG-81 TAB PO (13:42)
[2023-06-14] MEDS ORDERED: ASPIRIN E.C. 8181 MG PO (13:43)
[2023-06-14] MEDS ORDERED: NORVASC 5MG5 MG/TAB PO (13:43)
[2023-06-14] MEDS ORDERED: B COMPLEX #11 TA1 PO (13:44)
[2023-06-14] MEDS ORDERED: MASON NATURAL2000 IU PO (13:44)
[2023-06-14] MEDS ORDERED: CYMBALTA 60MG60 MG PO (13:48)
[2023-06-14 14:10] VITALS: BP 128/77; PULSE 83
[2023-06-14 14:30] VITALS: BP 124/72; PULSE 70
--- NOTE | 2023-06-14 14:35 | NUR ---
PT ARRIVED BACK TO ROOM ON GERNY AND ASSISTED INTO PT RECLINER VIA STANDBY ASSIST. PT A&OX4. PT HAD UPPER ENDOSCOPY THAT WAS NEGATIVE OTHER THAN HAVING H. PYLORI TEST SENT OUT; ALSO HAD COLONSCOPY DONE WHICH HAD THREE POLYPS FOUND AND REMOVED W/ STENT PLACEMENT X2. STENTS WERE PLACED FOR BLEEDING REDUCTION PT IS ON BLOOD THINNERS AT HOME. DR. HAJI SAW PT @ 1418 AND WENT OVER FINDINGS. IV WAS REMOVED @ 1422 AND THEN PT INSTRUCTIONS DONE @ 1428. PT AND EXPRESSED UNDERSTANDING W/OUT QUESTIONS. PT TOLERATED PO FLUIDS AND FOOD W/OUT PAIN OR NAUSEA. PT DISCHARGED HOME W/ @ 1442.
== END 2023-06-14 14:42 | disposition home or self-care (01) ==
LOC: SDCO 12:23
DX: K29.30 Chronic superficial gastritis without bleeding (principal); K21.00 Gastro-esophageal reflux disease with esophagitis, without bleeding; D12.2 Benign neoplasm of ascending colon; K57.30 Diverticulosis of large intestine without perforation or abscess without bleeding; R63.4 Abnormal weight loss; Z87.891 Personal history of nicotine dependence; Z79.899 Other long term (current) drug therapy
CPT/HCPCS: J2704; J7120

== ENCOUNTER → 2023-11-06 | Outpatient (CLI) | payer MEDICARE, OTHER ==
[~2023-11-06] MED LIST changes: +ASPIRIN E.C. 8181 MG PO; +B COMPLEX #11 TA1 PO; +CYMBALTA 60MG60 MG PO; +FLOMAX 0.40.4 MG/CAP PO; +Iohexol 300 - 10 ML VIAL IV ONE; -LR 1,000 ML IV SCH; +MASON NATURAL2000 IU PO; +NORVASC 5MG5 MG/TAB PO; -Ondansetron 4 MG/2 ML VIAL IV PRN; +SENNA-S 50 MG-81 TAB PO; +Triamcinolone 40 MG/ML 1 ML VIAL IJ ONE
== END ==
LOC: COL.RAD 10:31
DX: M25.551 Pain in right hip (principal)
CPT/HCPCS: J0665; J3301; Q9967

== ENCOUNTER 2023-11-15 15:38 | Emergency (ER) | payer MEDICARE, OTHER ==
[~2023-11-15] VITALS: Ht 165.1 cm; Wt 62.7 kg
[~2023-11-15 15:38] MED LIST changes: -Iohexol 300 - 10 ML VIAL IV ONE; -Triamcinolone 40 MG/ML 1 ML VIAL IJ ONE
[2023-11-15 15:41] VITALS: TEMP 98
[2023-11-15 16:00] LABS: BASO % 0.3 % (0.0-2.0); EOS # 0.1 K/mm3 (0.0-0.7); EOS % 1.3 % (0.0-4.0); GRAN # 2.2 K/mm3 (1.4-6.5); GRAN % 56.5 % (42.2-75.2); HEMOGLOBIN 10.4 g/dl (13.5-18.0); LYMPH % 26.3 % (20.0-51.0); MEAN CELL VOLUME 89 fl (80.0-100.0); MEAN CORPUSCULAR HEMOGLOBIN 29 pg (27-31); MEAN CORPUSCULAR HGB CONC 33 g/dl (33.0-37.0); MEAN PLATELET VOLUME 8.8 fl (7.4-10.4); MONO # 0.6 K/mm3 (0.1-0.6); MONO % 15.6 % (1.7-9.3); PLATELET COUNT 164 K/mm3 (130-400); RED BLOOD COUNT 3.56 M/mm3 (4.20-5.60); REDCELL DISTRIBUTION WIDTH-CV 14.8 % (11.5-14.5)
[2023-11-15 16:01] LABS: HEMATOCRIT 31.8 % (42.0-52.0)
[2023-11-15 16:11] LABS: INR 1.1 (0.8-3.0)
[2023-11-15 16:22] LABS: ALANINE AMINOTRANSFERASE 20 U/L (0-55); ALBUMIN 3.3 g/dL (3.4-4.8); ALKALINE PHOSPHATASE 68 U/L (40-150); ANION GAP 10 mmol/L (7-16); AST,SGOT 19 U/L (5-34); BILIRUBIN,TOTAL 0.3 mg/dL (0.2-1.2); BLOOD UREA NITROGEN 37 mg/dL (8-26); CALCIUM 8.6 mg/dL (8.4-10.2); CHLORIDE 101 mEq/L (98-107); CREATINE KINASE 108 U/L (30-200); CREATININE, serum 1.69 mg/dL (0.72-1.25); GLUCOSE 97 mg/dL (70-99); POTASSIUM 3.8 mEq/L (3.5-4.5); SODIUM 137 mEq/L (136-145); TOTAL PROTEIN 6.7 g/dl (6.2-8.1)
[2023-11-15 16:40] LABS: TROPONIN-I < 0.010 ng/mL (0.00-0.033)
[2023-11-15] MEDS ORDERED: Iohexol 350 - 100 ML VIAL IV ONE (17:17)
[2023-11-15] MEDS ORDERED: NS 100 ML IV SCH (17:17)
[2023-11-15 20:58] VITALS: BP 110/72; PULSE 51
== END 2023-11-15 21:06 | disposition home or self-care (01) ==
LOC: COL.ER 15:38
PROVIDERS: Emergency Medicine
DX: I71.40 Abdominal aortic aneurysm, without rupture, unspecified (principal); Z79.02 Long term (current) use of antithrombotics/antiplatelets; Z95.5 Presence of coronary angioplasty implant and graft
CPT/HCPCS: Q9967